=== PATIENT | female | born 1960 | race Asian ===

== ENCOUNTER 2019-11-25 19:01 | Outpatient (CLI) | payer OTHER | END 2019-11-25 19:08 | disposition short-term general hospital (02) | LOC: AMB 19:01 | DX: R06.09 Other forms of dyspnea (principal) | CPT/HCPCS: A0425; A0427 ==

== ENCOUNTER 2019-11-25 19:18 | Emergency (ER) | payer OTHER ==
[~2019-11-25] VITALS: Ht 175.3 cm; Wt 108.9 kg
[2019-11-25 19:45] LABS: POTASSIUM 3.2 mmol/L (3.6-5.2)
[2019-11-25 19:51] LABS: PLATELET COUNT 128 K/uL (152-353)
[2019-11-25 21:51] VITALS: BP 165/93; TEMP 97.9
== END 2019-11-25 22:15 | disposition short-term general hospital (02) ==
LOC: ED 19:18
PROVIDERS: Emergency Medicine
PROC: 0T9B70Z Drainage of Bladder with Drainage Device, Via Natural or Artificial Opening (ICD-10-PCS; principal; 2019-11-25)
DX: R06.03 Acute respiratory distress (principal); I50.9 Heart failure, unspecified; R79.89 Other specified abnormal findings of blood chemistry; J18.9 Pneumonia, unspecified organism; R50.9 Fever, unspecified
CPT/HCPCS: 36415; 36600; 51702; 80053; 81000; 82550; 82553; 82805; 83605; 83880; 84484; 85027; 85379; 87040; 87088; 93005; 94664; 96374; 96375; 99285; J1940